=== PATIENT | female | born 1945 | race Caucasian/White ===

== ENCOUNTER 2017-04-09 07:40 | Outpatient (CLI) | payer MEDICARE, BC ==
[2016-03-15 21:19] VITALS: O2SAT 93
== END 2017-04-09 07:41 | disposition home or self-care (01) | DRG 561 ==
LOC: CONVCARE 07:40
PROVIDERS: ATTEND Orthopaedic Surgery
DX: Z47.1 Aftercare following joint replacement surgery (principal); Z96.642 Presence of left artificial hip joint
CPT/HCPCS: 73562

== ENCOUNTER 2017-10-22 09:46 | Outpatient (CLI) | payer MEDICARE, BC ==
[2016-03-15 21:19] VITALS: O2SAT 93
== END 2017-10-22 09:47 | disposition home or self-care (01) | DRG 561 ==
LOC: CONVCARE 09:46
PROVIDERS: ATTEND Orthopaedic Surgery
DX: Z47.1 Aftercare following joint replacement surgery (principal); M25.562 Pain in left knee; Z96.652 Presence of left artificial knee joint
CPT/HCPCS: 73562

== ENCOUNTER 2018-07-14 08:29 | Day surgery (SDC) | payer BC ==
[2018-07-14] MEDS ORDERED: LIDOCAINE HCL 2% MPF 10 ML SOL ONE ×2 (09:19→09:22)
[2018-07-14] MEDS ORDERED: PROPOFOL 10 MG/ML 200 MG/20 ML EMU IV ONE (09:38)
[2018-07-14] MEDS ORDERED: FENTANYL 100MCG/2ML SOL ONE (09:39)
[2018-07-14 10:38] VITALS: TEMP 97.4
[2018-07-14 10:56] VITALS: BP 142/82; PULSE 58; RESP 18; O2SAT 93
== END 2018-07-14 11:39 | disposition home or self-care (01) | DRG 74 ==
LOC: SURG 08:29
PROVIDERS: ATTEND Orthopaedic Surgery
DX: G56.01 Carpal tunnel syndrome, right upper limb (principal)
CPT/HCPCS: J3010; A6402; J2704

== ENCOUNTER 2018-09-01 08:38 | Day surgery (SDC) | payer BC ==
[2018-09-01] MEDS ORDERED: MIDAZOLAM 2 MG/2 ML SOL ONE (08:52)
[2018-09-01] MEDS ORDERED: PROPOFOL 500 MG/50 ML EMU IV ONE (08:52)
[2018-09-01] MEDS ORDERED: ONDANSETRON HCL 4 MG/2 ML SOL ONE (08:52)
[2018-09-01] MEDS ORDERED: LIDOCAINE HCL 1% MPF 30 SOL ONE (08:53)
[2018-09-01] MEDS ORDERED: FENTANYL 100MCG/2ML SOL ONE (08:53)
[2018-09-01] MEDS ORDERED: LIDOCAINE HCL 2% MPF 10 ML SOL ONE (09:30)
[2018-09-01 11:42] VITALS: TEMP 98.1
[2018-09-01 11:47] VITALS: PULSE 66
[2018-09-01 12:19] VITALS: BP 136/72; RESP 12; O2SAT 94
== END 2018-09-01 12:46 | disposition home or self-care (01) | DRG 74 ==
LOC: SURG 08:38
PROVIDERS: ATTEND Orthopaedic Surgery
DX: G56.02 Carpal tunnel syndrome, left upper limb (principal); M65.88 Other synovitis and tenosynovitis, other site
CPT/HCPCS: J2250; J2405; J3010; A6402; J2001; J2704